=== PATIENT | female | born 1965 | race Two or more races ===

== ENCOUNTER 2017-07-29 22:45 | Emergency (ER) | payer MEDICAID, MEDICARE ==
[~2017-07-29] VITALS: Ht 170.2 cm; Wt 89.8 kg
[2017-07-29 23:00] VITALS: BP 142/86
== END 2017-07-29 23:39 | disposition left against medical advice (07) ==
LOC: ER 22:52
DX: R05 Cough (principal); R07.9 Chest pain, unspecified; Z53.21 Procedure and treatment not carried out due to patient leaving prior to being seen by health care provider
CPT/HCPCS: 93005